=== PATIENT | female | born 1995 | race Caucasian/White ===

== ENCOUNTER 2017-08-01 05:17 | Emergency (ER) | payer OTHER ==
[~2017-08-01] VITALS: Ht 7.6 cm; Wt 86.4 kg
[~2017-08-01 05:17] MED LIST: BUSPAR10 MG PO; EFFEXOR-XR150 MG PO; KLONOPIN 0.5MG0.5 MG PO; SINGULAIR 110 MG/TAB PO; VYVANSE70 MG PO
[2017-08-01 05:20] VITALS: BP 124/76; PULSE 87; TEMP 96.9
[2017-08-01] MEDS ORDERED: ROBAXIN 50500 MG/TAB PO (05:47)
[2017-08-01] MEDS ORDERED: CYMBALTA 60MG60 MG PO (05:47)
[2017-08-01 06:00] LABS: PH 5 (5-8); URINE APPEARANCE Cloudy; URINE BILIRUBIN Negative (NEGATIVE); URINE BLOOD 3+ (NEGATIVE); URINE COLOR Red; URINE GLUCOSE Negative (NEGATIVE); URINE KETONE Negative (NEGATIVE); URINE UROBILINOGEN Negative (NEGATIVE); URINE WBC 20-50 /hpf
[2017-08-01 06:01] LABS: SQUAMOUS EPITHELIAL 0-2 /hpf; URINE RBC >50 /hpf
[2017-08-01] MEDS ORDERED: OMNICEF 300MG300 MG PO (06:10)
[2017-08-01] MEDS ORDERED: PYRIDIUM200 M1 PO (06:10)
== END 2017-08-01 06:31 | disposition home or self-care (01) ==
LOC: COL.ER 05:17
PROVIDERS: Emergency Medicine
DX: N39.0 Urinary tract infection, site not specified (principal)